=== PATIENT | female | born 1965 | race Caucasian/White ===

== ENCOUNTER → 2017-03-31 | Outpatient (REF) | LOC: M LAB 10:53 | PROVIDERS: ATTEND Nurse Practitioner Adult Health | DX: Z01.84 Encounter for antibody response examination (principal) ==

== ENCOUNTER → 2017-05-08 | Outpatient (CLI) | payer MEDICARE, MEDICAID | LOC: M WHC 15:41 | DX: Z12.31 Encounter for screening mammogram for malignant neoplasm of breast (principal) | CPT/HCPCS: 77067 ==

== ENCOUNTER → 2018-08-23 | Outpatient (CLI) | payer MEDICARE, MEDICAID ==
--- NOTE | 2018-08-30 16:26 | SLEEPCENT ---
DATE OF PROCEDURE: 08/23/2018 ORDERED BY: Melanie Wood NP Nocturnal polysomnography was performed for evaluation of sleep physiology in this patient with a history of excessive somnolence and nonrestorative sleep. 8 hours and 36 minutes of data were reviewed. There were 313 minutes of sleep identified. Sleep latency was prolonged at 82 minutes. Rapid eye movement (REM) sleep was not achieved. Overall sleep architecture showed poor progression and fragmentation. Sleep efficiency was 61.5%. The electrocardiogram showed a sinus rhythm with an average heart rate of 82 beats per minute. Electroencephalogram (EEG) showed normal waveforms for awake and sleep stages. There were 225 respiratory events identified of 10 seconds in duration or greater for an apnea-hypopnea index of 43.1. The events were primarily obstructive, not exclusive to sleep stage nor body posture. Arousals from respiratory events occurred 4.2 times per hour and oxygen desaturations were seen into the 80s. There was minimal activity in the limb leads. Remaining measures of sleep physiology were normal. IMPRESSION: Obstructive sleep apnea syndrome (G47.33). Apnea-hypopnea index 43.1. RECOMMENDATIONS: The patient should be encouraged to return to sleep disorder center for pressure therapy. In the interim, alcohol and sedative avoidance be practiced and caution exercised during the operation of motor vehicles.
== END ==
LOC: M SLEEP 19:43
PROVIDERS: ATTEND Nurse Practitioner Adult Health
DX: G47.33 Obstructive sleep apnea (adult) (pediatric) (principal)

== ENCOUNTER → 2018-09-18 | Outpatient (CLI) | payer MEDICARE, MEDICAID ==
--- NOTE | 2018-09-22 09:23 | SLEEPCENT ---
DATE OF PROCEDURE: 09/18/2018 ORDERING PROVIDER: Melanie Wood NP Nocturnal polysomnography was performed for the titration of pressure therapy in this patient with severe obstructive sleep apnea syndrome. Apnea-hypopnea index 43.1. For testing, a ResMed Air Fit full face mask of medium size was used, 4 cm of water pressure were applied circuit and the lights were extinguished. 8 hours and 46 minutes of data were reviewed. There were 281 minutes of sleep identified. Sleep latency was mildly prolonged at 21 minutes. Rapid eye movement (REM) latency was prolonged at 413 minutes. Sleep architecture improved late in the study. Overall sleep efficiency was only 54%. The electrocardiogram showed a sinus rhythm with an average heart rate of 80 beats minute. Electroencephalogram (EEG) showed normal waveforms for awake and sleep. Respiratory events were fully palliated with C-PAP of pressure of +12 and remaining measures of sleep physiology were fairly normal. IMPRESSION: Obstructive sleep apnea syndrome (G47.33). RECOMMENDATIONS: Nightly use of pressure therapy 12 cm of water.
== END ==
LOC: M SLEEP 20:00
PROVIDERS: ATTEND Nurse Practitioner Adult Health
DX: G47.33 Obstructive sleep apnea (adult) (pediatric) (principal)

== ENCOUNTER → 2019-04-17 | Outpatient (CLI) | payer MEDICARE, MEDICAID ==
--- NOTE | 2019-04-22 16:27 | SLEEPCENT ---
DATE OF PROCEDURE: 04/17/2019 ORDERED BY: Hubert Duarte DO Nocturnal polysomnography was performed for the titration of pressure therapy in this patient with obstructive sleep apnea syndrome and pressure therapy intolerance. For testing a ResMed Quattro full-face mask of small size was used; 6 cm of water pressure were applied to the circuit and the lights were extinguished. 9 hours and 35 minutes of data were reviewed. There were 395.5 minutes of sleep identified. Sleep latency was prolonged 40 minutes. Rapid eye movement (REM) latency was prolonged at 294 minutes. Sleep architecture improved on optimal pressure therapy. There are 2 REM cycles noted. Overall sleep efficiency was 69.3%. The patient's electrocardiogram showed sinus rhythm with an average heart rate of 80 beats per minute. Electroencephalogram (EEG) showed normal waveforms for awake and sleep. Respiratory events were reasonably palliated with CPAP at a pressure of +9. There was some limb activity noted in the electromyogram (EMG) leads. Limb movement arousal index was 6.5. IMPRESSION: Obstructive sleep apnea syndrome (G47.33). RECOMMENDATIONS: Nightly use of pressure therapy 9 cm of water.
== END ==
LOC: M SLEEP 20:00
PROVIDERS: ATTEND Internal Medicine Pulmonary Disease
DX: G47.33 Obstructive sleep apnea (adult) (pediatric) (principal)

== ENCOUNTER → 2019-05-26 | Outpatient (CLI) | payer MEDICARE, MEDICAID ==
--- NOTE | 2019-05-26 13:41 | REP ---
DIAGNOSTIC MAMMOGRAM RIGHT BREAST: Magnification views of the right breast performed and correlated with the recent mammogram of 05/12/2019 which showed a grouping of linear calcifications in the upper outer quadrant of the right breast. Today's magnification views demonstrate scattered linear and somewhat coarse calcifications in the upper and lower portion of the outer aspect of the right breast. These are scattered diffusely and are not clustered in any suspicious manner. They do not appear to be suspicious. IMPRESSION: ACR 2 benign. Scattered benign appearing ductal calcifications in the outer right breast both superiorly and inferiorly. These are not clustered in any suspicious manner. Recommend followup mammogram in one year. Electronically Signed by Charles Barcenas MD 05/27/2019 12:30 P
== END ==
LOC: M RAD 10:42
PROVIDERS: ATTEND Internal Medicine
DX: Z12.31 Encounter for screening mammogram for malignant neoplasm of breast (principal); R92.8 Other abnormal and inconclusive findings on diagnostic imaging of breast

== ENCOUNTER → 2019-11-27 | Outpatient (CLI) | payer MEDICARE, MEDICAID ==
--- NOTE | 2020-01-09 08:49 | SLEEPCENT ---
DATE: 11/27/2019 ORDERED BY: Melanie Wood NP Nocturnal polysomnography was performed for the titration of pressure therapy in this patient with obstructive sleep apnea syndrome. For testing, a ResMed Quattro full-face mask of small size was used, 10 cm of water pressure applied was initially applied to the circuit, and the lights were extinguished. There was 7 hours and 46 minutes of data reviewed. There was 363.5 minutes of sleep identified. Sleep latency was prolonged at 36.5 minutes. REM latency was prolonged at 391 minutes. Sleep architecture showed fragmentation. Improvement was seen at the very end of the study as the patient was able to enter REM sleep. Overall sleep efficiency was 79%. The electrocardiogram showed a sinus rhythm with an average heart rate of 65 beats per minute. EEG showed normal waveforms for wake and sleep. Respiratory events were best palliated with CPAP at a pressure of +15. Significant limb activity was appreciated throughout the study. Limb movement arousal index was 20.1. IMPRESSION: * Obstructive sleep apnea syndrome (G47.33). * Possible periodic limb movement disorder (G47.61), limb movement arousal index 20.1. RECOMMENDATIONS: Nightly use of pressure therapy at 15 cm of water should be sufficient to address the patients obstructive respiratory events. If sleep symptoms persist, interventions to reduce the frequency of arousal from limb activity may be helpful. /justina Flowers edited: 02/22/2020 [id number] tkf KEITH
== END ==
LOC: M SLEEP 20:00
PROVIDERS: ATTEND Nurse Practitioner Adult Health
DX: G47.33 Obstructive sleep apnea (adult) (pediatric) (principal)

== ENCOUNTER → 2021-03-11 | Outpatient (REF) | payer MEDICARE, MEDICAID | LOC: M LAB REF 12:14 | PROVIDERS: ATTEND Physician Assistant | DX: R05.9 Cough, unspecified (principal) ==

== ENCOUNTER → 2022-04-07 | Outpatient (CLI) | payer MEDICARE, MEDICAID | LOC: M WHC 11:25 | PROVIDERS: ATTEND Internal Medicine | DX: Z12.31 Encounter for screening mammogram for malignant neoplasm of breast (principal) ==

== ENCOUNTER 2023-05-25 12:05 | Emergency (ER) | payer MEDICARE, MEDICAID ==
[~2023-05-25] VITALS: Ht 149.9 cm; Wt 55.3 kg
[2023-05-25 14:45] LABS: EOS % 0.3 % (0.0-3.0); HEMATOCRIT 29.5 % (36.0-47.0); HEMOGLOBIN 9.7 g/dl (12.0-15.5); LYMPH # 0.7 10^3/uL (1.5-5.0); LYMPH % 18.3 % (24.0-44.0); MEAN CORPUSCULAR HEMOGLOBIN 29.6 pg (27.0-33.0); MEAN CORPUSCULAR HGB CONC 32.9 g/dl (32.0-36.5); MEAN CORPUSCULAR VOLUME 89.9 fl (80.0-96.0); MONO # 0.2 10^3/uL (0.0-0.8); MONO % 6.5 % (2.0-8.0); NEUTROPHILS # 2.7 10^3/uL (1.5-8.5); NEUTROPHILS % 74.3 % (36.0-66.0); PLATELET COUNT, AUTOMATED 286 10^3/uL (150-450); RED BLOOD COUNT 3.28 10^6/uL (4.00-5.40); WHITE BLOOD COUNT 3.6 10^3/uL (4.0-10.0)
[2023-05-25] MEDS ORDERED: ACETAMINOPHEN TAB 650MG DOSE (2X325MG) PO ONE (14:50)
[2023-05-25 15:21] LABS: BLOOD UREA NITROGEN 12 MG/DL (9-23); CALCIUM LEVEL 7.3 MG/DL (8.5-10.1); CARBON DIOXIDE LEVEL 30 MMOL/L (20-31); CHLORIDE LEVEL 95 MMOL/L (98-107); GLOMERULAR FILTRATION RATE > 60.0 (>51); GLUCOSE, FASTING 206 MG/DL (60-100); POTASSIUM SERUM 3.6 MMOL/L (3.5-5.1); SODIUM LEVEL 130 MMOL/L (136-145)
[2023-05-25] MEDS ORDERED: NS 1,000 ML IV ONE (16:20)
[2023-05-25 17:07] LABS: THYROID STIMULATING HORMONE 1.839 uIU/ML (0.55-4.78)
[2023-05-25] MEDS ORDERED: cefTRIAXone SOD 1 GM in D5W MINI-BAG PLUS 50 ML IV ONE (18:20)
[2023-05-25 18:29] LABS: ALBUMIN 1.8 G/DL (3.2-5.2); BILIRUBIN,DIRECT 0.2 MG/DL (<0.4); BILIRUBIN,TOTAL 0.4 MG/DL (0.3-1.2); TOTAL PROTEIN 5.4 G/DL (5.7-8.2)
[2023-05-25 18:30] VITALS: BP 91/54
[2023-05-25] MEDS ORDERED: SULF1TAB23 PO (18:37)
[2023-05-25 18:45] VITALS: O2SAT 95
[2023-05-25 18:52] VITALS: TEMP 97.2
== END 2023-05-25 18:58 | disposition home or self-care (01) ==
LOC: M ED 14:12
DX: N39.0 Urinary tract infection, site not specified (principal); E11.9 Type 2 diabetes mellitus without complications; I10 Essential (primary) hypertension; Z79.899 Other long term (current) drug therapy
CPT/HCPCS: 71046; 80048; 80076; 81001; 83605; 83970; 84443; 85025; 87040; 87088; 87186; 87486; 87581; 87633; 87798; 93005; 96361; 96365; 99284; J0696

== ENCOUNTER → 2023-06-04 | Outpatient (REF) | payer MEDICARE, MEDICAID ==
[~2023-06-04] MED LIST: SULF1TAB23 PO
[2023-06-04 18:22] LABS: PERCENT SATURATION 10.4 % (13.2-45.0)
[2023-06-04 18:29] LABS: FOLATE 14.2 NG/ML (>5.4)
[2023-06-04 18:30] LABS: FERRITIN 26.3 NG/ML (7.3-270.7)
== END ==
LOC: M LAB REF 17:33
PROVIDERS: ATTEND Nurse Practitioner Family
DX: D50.9 Iron deficiency anemia, unspecified (principal); D64.9 Anemia, unspecified

== ENCOUNTER → 2023-07-22 | Outpatient (CLI) | payer MEDICARE, MEDICAID ==
[2023-07-22 08:20] LABS: BASO % 0.5 % (0.0-1.0); EOS % 0.7 % (0.0-3.0); HEMOGLOBIN 12.1 g/dl (12.0-15.5); LYMPH # 1.3 10^3/uL (1.5-5.0); LYMPH % 30.5 % (24.0-44.0); MEAN CORPUSCULAR HEMOGLOBIN 27.3 pg (27.0-33.0); MEAN CORPUSCULAR HGB CONC 31.8 g/dl (32.0-36.5); MEAN CORPUSCULAR VOLUME 85.8 fl (80.0-96.0); MONO # 0.2 10^3/uL (0.0-0.8); MONO % 5.1 % (2.0-8.0); NEUTROPHILS # 2.7 10^3/uL (1.5-8.5); PLATELET COUNT, AUTOMATED 345 10^3/uL (150-450); RED BLOOD COUNT 4.43 10^6/uL (4.00-5.40); WHITE BLOOD COUNT 4.3 10^3/uL (4.0-10.0)
[2023-07-22 09:12] LABS: ALBUMIN 3.3 G/DL (3.2-5.2); ALKALINE PHOSPHATASE 127 U/L (46-116); ALT/SGPT 17 U/L (7.0-40); AST/SGOT 11 U/L (<34); BILIRUBIN,TOTAL 0.4 MG/DL (0.3-1.2); BLOOD UREA NITROGEN 13 MG/DL (9-23); CALCIUM LEVEL 9.5 MG/DL (8.5-10.1); CARBON DIOXIDE LEVEL 34 MMOL/L (20-31); CHLORIDE LEVEL 101 MMOL/L (98-107); CREATININE FOR GFR 0.39 MG/DL (0.55-1.30); GLOMERULAR FILTRATION RATE > 60.0 (>51); GLUCOSE, FASTING 211 MG/DL (60-100); SODIUM LEVEL 140 MMOL/L (136-145); TOTAL PROTEIN 6.9 G/DL (5.7-8.2)
== END ==
LOC: M LAB 07:42
PROVIDERS: ATTEND Family Medicine
DX: D64.9 Anemia, unspecified (principal); R74.8 Abnormal levels of other serum enzymes; E87.1 Hypo-osmolality and hyponatremia

== ENCOUNTER → 2023-08-06 | Outpatient (CLI) | payer MEDICARE, MEDICAID | LOC: M WHC 09:39 | PROVIDERS: ATTEND Nurse Practitioner Family | DX: N28.1 Cyst of kidney, acquired (principal); E11.21 Type 2 diabetes mellitus with diabetic nephropathy; R80.9 Proteinuria, unspecified ==

== ENCOUNTER 2024-06-21 07:24 | Emergency (ER) | payer MEDICAID, MEDICARE ==
[~2024-06-21] VITALS: Ht 142.2 cm; Wt 58.0 kg
[2024-06-21 07:35] VITALS: BP 142/65; TEMP 96.8; O2SAT 100
== END 2024-06-21 10:12 | disposition left against medical advice (07) ==
LOC: M ED 07:24
DX: Z53.21 Procedure and treatment not carried out due to patient leaving prior to being seen by health care provider (principal)

== ENCOUNTER → 2024-06-24 | Outpatient (CLI) | payer MEDICARE ==
[2024-06-24 09:55] LABS: BASO % 0.2 % (0.0-1.0); EOS % 0.2 % (0.0-3.0); HEMATOCRIT 41.1 % (36.0-47.0); HEMOGLOBIN 12.8 g/dl (12.0-15.5); LYMPH # 1.1 10^3/uL (1.5-5.0); LYMPH % 19.7 % (24.0-44.0); MEAN CORPUSCULAR HEMOGLOBIN 24.4 pg (27.0-33.0); MEAN CORPUSCULAR HGB CONC 31.1 g/dl (32.0-36.5); MEAN CORPUSCULAR VOLUME 78.4 fl (80.0-96.0); MONO # 0.5 10^3/uL (0.0-0.8); MONO % 9.2 % (2.0-8.0); NEUTROPHILS # 3.7 10^3/uL (1.5-8.5); NEUTROPHILS % 70.3 % (36.0-66.0); PLATELET COUNT, AUTOMATED 298 10^3/uL (150-450); RED BLOOD COUNT 5.24 10^6/uL (4.00-5.40); WHITE BLOOD COUNT 5.3 10^3/uL (4.0-10.0)
[2024-06-24 10:26] LABS: ALBUMIN 3.6 G/DL (3.2-5.2); ALKALINE PHOSPHATASE 110 U/L (35-104); ALT/SGPT 20 U/L (7.0-40); AST/SGOT 9 U/L (<34); BILIRUBIN,TOTAL 0.7 MG/DL (0.3-1.2); BLOOD UREA NITROGEN 26 MG/DL (9-23); CARBON DIOXIDE LEVEL 31 MMOL/L (20-31); CHLORIDE LEVEL 94 MMOL/L (98-107); CHOLESTEROL LEVEL 197 MG/DL (<200); CHOLESTEROL RISK RATIO 5.88 (<5); CREATININE FOR GFR 0.47 MG/DL (0.55-1.30); GLOMERULAR FILTRATION RATE > 60.0 (>51); GLUCOSE, FASTING 198 MG/DL (60-100); HDL CHOLESTEROL 33.5 MG/DL (>40); LDL CHOLESTEROL 126.5 MG/DL (<100); NON-HDL-C 163.5 MG/DL; POTASSIUM SERUM 3.2 MMOL/L (3.5-5.1); SODIUM LEVEL 136 MMOL/L (136-145); TOTAL PROTEIN 7.2 G/DL (5.7-8.2); TRIGLYCERIDES LEVEL 185 MG/DL (<150)
[2024-06-24 10:38] LABS: HEMOGLOBIN A1c 10.3 % (4.0-6.0)
== END ==
LOC: M LAB 09:18
PROVIDERS: ATTEND Family Medicine
DX: R74.8 Abnormal levels of other serum enzymes (principal)

== ENCOUNTER → 2024-08-12 | Outpatient (REF) | payer MEDICARE, MEDICAID ==
[2024-08-12 17:53] LABS: CREATININE, URINE 93.9 MG/DL; MAU/CREAT RATIO 72.4 MCG/MG (0.0-30.0)
== END ==
LOC: M LAB REF 16:52
PROVIDERS: ATTEND Nurse Practitioner Family
DX: E11.22 Type 2 diabetes mellitus with diabetic chronic kidney disease (principal)